=== PATIENT | male | born 1965 | race Two or more races ===

== ENCOUNTER 2016-08-17 23:03 | Emergency (ER) | payer SELFPAY ==
[2016-08-18] MEDS ORDERED: LIDOCAINE 1% INJ-PF (10 MG/ML) 30 ML SDV INJ ONE (01:14)
[2016-08-18] MEDS ORDERED: CEFTRIAXONE INJ 1000 MG VIAL IM ONE (01:14)
[2016-08-18] MEDS ORDERED: GUAIFENESIN/D-METHORPHAN (200-20 MG) SYRUP 10 ML PO ONE (01:14)
[2016-08-18] MEDS ORDERED: SULFAMETHOXAZOLE/TRIMETHOPRIM 800-160 MG TABLET PO ONE (01:19)
--- NOTE | 2016-08-18 01:25 | ER Document Report ---
ED Respiratory Problem - General Chief Complaint: Painful Cough Stated Complaint: CHEST PAIN,COUGH Mode of Arrival: Ambulatory Information source: Patient Notes: Patient is a 51-year-old male who presents to the ER today for cough 1 week with fever, chills, runny nose, wheezing and occasional shortness of breath. Patient states that he is having some pain in his chest that is worsened by the cough. He denies any history of asthma or COPD, CHF. He denies any cardiac history except for hypertension. TRAVEL OUTSIDE OF THE [place] IN LAST 30 DAYS: No Past Medical History - General Information source: Patient - Social History Smoking Status: Unknown if Ever Smoked Frequency of alcohol use: None Drug Abuse: None Family History: Reviewed & Not Pertinent Patient has suicidal ideation: No Patient has homicidal ideation: No Review of Systems - Review of Systems Constitutional: See HPI EENT: See HPI Cardiovascular: No symptoms reported Respiratory: See HPI Gastrointestinal: No symptoms reported Genitourinary: No symptoms reported Male Genitourinary: No symptoms reported Musculoskeletal: See HPI Skin: No symptoms reported Hematologic/Lymphatic: No symptoms reported Neurological/Psychological: No symptoms reported Physical Exam - Vital signs Vitals: Temp Pulse Resp BP Pulse Ox 98.4 F 62 16 188/96 H 99 08/18/16 01:47 08/18/16 01:47 08/18/16 01:47 08/18/16 01:47 08/18/16 01:47 - Notes Notes: PHYSICAL EXAMINATION: GENERAL: Wearing mask, coughing constantly, but in no acute distress. HEAD: Atraumatic, normocephalic. EYES: Pupils equal round and reactive to light, extraocular movements intact, sclera anicteric, conjunctiva are normal. NECK: Normal range of motion, supple without lymphadenopathy LUNGS: Cough, rhonchi heard in left lower lung alvarado, mild expiratory wheezes throughout, no rales HEART/CHEST: tender to palpation over bilateral lower ribs, Regular rate and rhythm without murmurs ABDOMEN: Soft, no tenderness. No guarding, no rebound EXTREMITIES: Normal range of motion, no pitting edema. No cyanosis. NEUROLOGICAL: Cranial nerves grossly intact. Normal sensory/motor exams. PSYCH: Normal mood, normal affect. SKIN: Warm, Dry, normal turgor, no rashes or lesions noted Course - Re-evaluation Re-evalutation: 08/18/16 01:22 EKG revealed normal sinus rhythm at a rate of 65 bpm. Patient's chest pain is reproducible and with coughing. Patient states he does not have money to fill antibiotic or cough medication so I had to choose from something off of the $4 [facility] list or he would not be able to fill the antibiotic anyway. For this reason I went with Bactrim as this is the only thing on the $4 [facility] list that may treat her pneumonia. I also gave him a Rocephin shot while here in the ER. - Vital Signs Vital signs: Temp Pulse Resp BP Pulse Ox 98.4 F 62 16 188/96 H 99 08/18/16 01:47 08/18/16 01:47 08/18/16 01:47 08/18/16 01:47 08/18/16 01:47 Discharge - Discharge Clinical Impression: Pneumonia Qualifiers: Pneumonia type: due to unspecified organism Laterality: right Lung location: lower lobe of lung Qualified Code(s): J18.1 - Lobar pneumonia, unspecified organism Disposition: HOME, SELF-CARE Instructions: Pneumonia ([facility]) Additional Instructions: It is incredibly important that you get your antibiotic filled. You'll be able to get it filled at [facility] $4. Return immediately for any new or worsening symptoms. Follow up with primary care provider, call tomorrow to make followup appointment. Prescriptions: Benzonatate [Tessalon Perle 100 mg Capsule] 100 mg PO Q8HP PRN #14 cap PRN Reason: Sulfamethoxazole/Trimethoprim [Bactrim Ds Tablet] 1 each PO BID #20 tablet Forms: Return to Work, Elevated Blood Pressure
[2016-08-18 02:15] VITALS: BP 188/96
--- NOTE | 2016-08-18 15:49 | EKG REPORT ---
SEVERITY:- NORMAL ECG - SINUS RHYTHM : Confirmed by: Rashmi Ramires 18-Aug-2016 15:48:14
== END 2016-08-18 01:47 | disposition home or self-care (01) ==
LOC: ER 23:03
DX: J18.1 Lobar pneumonia, unspecified organism (principal); R05 Cough; R50.9 Fever, unspecified; R06.02 Shortness of breath; R06.2 Wheezing; R07.89 Other chest pain; I10 Essential (primary) hypertension
CPT/HCPCS: 93005; 99283; 96372; 93010; J3490 ×2; J0696

== ENCOUNTER 2016-10-22 15:53 | Emergency (ER) | payer SELFPAY ==
--- NOTE | 2016-10-22 16:50 | ER Document Report ---
ED Medical Screen (RME) - General Stated Complaint: HEADACHE Time seen by provider: 16:47 Mode of Arrival: Ambulatory Information source: Patient Notes: 51-year-old male presents to ED ED for elevated blood pressure with dizziness, bad headache, and blurred vision. He states he feels sick metal when he does or doesn't eat eats. He states he ran out of money and has not been to the doctor recently does not have any medication for his high blood pressure diabetes type II or hypothyroidism. States he called [facility] and they are not taken any new patients until December. He states he went to the [facility] and there was nobody there to see him. I have greeted and performed a rapid initial assessment of this patient. A comprehensive ED assessment and evaluation of the patient, analysis of test results and completion of medical decision making process will be conducted by an additional ED providers. TRAVEL OUTSIDE OF THE [place] IN LAST 30 DAYS: No Physical Exam - Vital signs Vitals: Temp Pulse Resp BP Pulse Ox 98.2 F 64 18 170/93 H 95 10/22/16 15:57 10/22/16 15:57 10/22/16 15:57 10/22/16 15:57 10/22/16 15:57 Course - Vital Signs Vital signs: Temp Pulse Resp BP Pulse Ox 98.2 F 64 18 170/93 H 95 10/22/16 15:57 10/22/16 15:57 10/22/16 15:57 10/22/16 15:57 10/22/16 15:57
[2016-10-22 17:22] LABS: ABSOLUTE EOSINOPHILS # (AUTO) 0.2 10^3/uL (0.0-0.6); ABSOLUTE LYMPHOCYTES (AUTO) 2.4 10^3/uL (0.5-4.7); ABSOLUTE MONOCYTES (AUTO) 0.6 10^3/uL (0.1-1.4); ABSOLUTE NEUT (AUTO) 4.7 10^3/uL (1.7-8.2); BASOPHILS % (AUTO) 0.3 % (0-2); HEMATOCRIT 42.6 % (37.9-51.0); HEMOGLOBIN 14.9 g/dL (13.5-17.0); HGB HCT DIFFERENCE 2.1; LYMPHOCYTES % (AUTO) 30.4 % (13-45); MEAN CORPUSCULAR HEMOGLOBIN 29.3 pg (27.0-33.4); MEAN CORPUSCULAR HGB CONC 34.9 g/dL (32.0-36.0); MEAN CORPUSCULAR VOLUME 84 fl (80-97); MONOCYTES % (AUTO) 7.9 % (3-13); RED BLOOD COUNT 5.07 10^6/uL (4.35-5.55); RED CELL DISTRIBUTION WIDTH 13.7 % (11.5-14.0); SEGMENTED NEUTROPHILS % (AUTO) 59.4 % (42-78); WHITE BLOOD COUNT 7.8 10^3/uL (4.0-10.5)
[2016-10-22 17:33] LABS: ALANINE AMINOTRANSFERASE 71 U/L (21-72); ALBUMIN 4.1 g/dL (3.5-5.0); ALKALINE PHOSPHATASE 57 U/L (38-126); ANION GAP 8 (5-19); ASPARTATE AMINO TRANSFERASE 54 U/L (17-59); BILIRUBIN,TOTAL 0.8 mg/dL (0.2-1.3); BLOOD UREA NITROGEN 7 mg/dL (7-20); CALCIUM 9.1 mg/dL (8.4-10.2); CARBON DIOXIDE 31 mmol/L (22-30); CHLORIDE 99 mmol/L (98-107); CREATININE RESULT 0.74 mg/dL (0.52-1.25); GLUCOSE 212 mg/dL (75-110); LIPASE 132.3 U/L (23-300); POTASSIUM 3.7 mmol/L (3.6-5.0); SODIUM 138.3 mmol/L (137-145); TOTAL PROTEIN 7.2 g/dL (6.3-8.2)
[2016-10-22] MEDS ORDERED: LISINOPRIL 10 MG TABLET PO ONE (20:15)
[2016-10-22] MEDS ORDERED: METFORMIN HCL 500 MG TABLET PO ONE (20:15)
--- NOTE | 2016-10-22 20:19 | ER Document Report ---
ED General - General Chief Complaint: Blood Pressure Problem Stated Complaint: HEADACHE Time seen by provider: 20:16 Mode of Arrival: Ambulatory Information source: Patient TRAVEL OUTSIDE OF THE [place] IN LAST 30 DAYS: No - HPI Patient complains to provider of: dizziness, headache, high blood pressure Onset: This morning Onset/Duration: Gradual Quality of pain: Achy Severity: Mild Pain Level: 2 Associated symptoms: Headache Exacerbated by: Denies Relieved by: Denies Similar symptoms previously: Yes Recently seen / treated by doctor: No Notes: Patient is a 51-year-old male with a reported history of hypertension, diabetes and hypothyroidism, states he's been off his medication for the past few years because he has not had the finances to follow-up with a physician or afford his medications, he presents today complaining of dizziness, lightheadedness and a reported blood pressure 198/117 that was measured while he was attempting to donate plasma at the blood plasma center today, he reports a headache behind his eyes and in his temples, although he took 2 Aleve prior coming to the emergency room and reports his symptoms are relieved at time of my initial evaluation - Related Data Allergies/Adverse Reactions: No Known Allergies Allergy (Unverified 10/22/16 16:58) Past Medical History - General Information source: Patient - Social History Smoking Status: Former Smoker Chew tobacco use (# tins/day): No Frequency of alcohol use: None Drug Abuse: None Family History: Reviewed & Not Pertinent Patient has suicidal ideation: No Patient has homicidal ideation: No Renal/ Medical History: Denies: Hx Peritoneal Dialysis Review of Systems - Review of Systems Constitutional: No symptoms reported EENT: No symptoms reported Cardiovascular: Lightheaded Respiratory: No symptoms reported Gastrointestinal: No symptoms reported Genitourinary: No symptoms reported Male Genitourinary: No symptoms reported Musculoskeletal: No symptoms reported Skin: No symptoms reported Hematologic/Lymphatic: No symptoms reported Neurological/Psychological: See HPI -: Yes All other systems reviewed and negative Physical Exam - Vital signs Vitals: Temp Pulse Resp BP Pulse Ox 98.2 F 64 18 170/93 H 95 10/22/16 15:57 10/22/16 15:57 10/22/16 15:57 10/22/16 15:57 10/22/16 15:57 Interpretation: Hypertensive - General General appearance: Appears well, Alert - HEENT Head: Normocephalic, Atraumatic Eyes: Normal Pupils: PERRL - Respiratory Respiratory status: No respiratory distress Chest status: Nontender Breath sounds: Normal Chest palpation: Normal - Cardiovascular Rhythm: Regular Heart sounds: Normal auscultation Murmur: No - Abdominal Inspection: Obese Distension: No distension Bowel sounds: Normal Tenderness: Nontender Organomegaly: No organomegaly - Back Back: Normal, Nontender - Extremities General upper extremity: Normal inspection, Nontender, Normal color, Normal ROM , Normal temperature General lower extremity: Normal inspection, Nontender, Normal color, Normal ROM , Normal temperature, Normal weight bearing. No: Radha's sign - Neurological Neuro grossly intact: Yes Cognition: Normal Orientation: AAOx4 Roni Coma Scale Eye Opening: Spontaneous Roni Coma Scale Verbal: Oriented Roni Coma Scale Motor: Obeys Commands Roni Coma Scale Total: 15 Speech: Normal Motor strength normal: LUE, RUE, LLE, RLE Sensory: Normal - Psychological Associated symptoms: Normal affect, Normal mood - Skin Skin Temperature: Warm Skin Moisture: Dry Skin Color: Normal Course - Re-evaluation Re-evalutation: 10/23/16 04:04 Patient's lab findings were discussed with him at bedside, he does not recall medications he is supposed to be taking for his conditions, he has not followed up, admits that when he was prescribed medications he was noncompliant with them because he would simply forget to take them, states even when he had them in a daily medication dispenser, he would forget to take them and then he basically just stopped taking them altogether, and never followed back up with a primary care provider, patient is noted to be hypertensive and hyperglycemic, therefore he was started on lisinopril and metformin, and provided with information for follow-up, advised to return if symptoms worsen, patient acknowledges understanding and agreement with this plan - Vital Signs Vital signs: Temp Pulse Resp BP Pulse Ox 98.2 F 58 L 18 158/97 H 97 10/22/16 15:57 10/22/16 20:41 10/22/16 20:41 10/22/16 20:41 10/22/16 20:41 - Laboratory Result Diagrams: 10/22/16 16:55 10/22/16 16:55 Laboratory results interpreted by me: 10/22/16 10/22/16 10/22/16 16:55 16:55 17:03 Plt Count 142 L Carbon Dioxide 31 H Glucose 212 H POC Glucose 213 H Discharge - Discharge Clinical Impression: Hypertension Qualifiers: Hypertension type: essential hypertension Qualified Code(s): I10 - Essential ( primary) hypertension Diabetes Qualifiers: Diabetes mellitus type: type 2 Diabetes mellitus complication status: without complication Diabetes mellitus care home insulin use: without care home use Qualified Code(s): E11.9 - Type 2 diabetes mellitus without complications Condition: Stable Disposition: HOME, SELF-CARE Instructions: Diabetes ([facility]), Control of Diabetes During Illness ([facility]), High Blood Pressure ([facility]), High Blood Pressure, Requiring Treatment ([facility]) Additional Instructions: Follow up with your primary care provider in one to 2 days. Return to the emergency room immediately if symptoms worsen or any additional concerns. Prescriptions: Lisinopril [Prinivil 10 mg Tablet] 10 mg PO DAILY #30 tablet Metformin HCl 500 mg PO BID #60 tablet
[2016-10-23 01:12] VITALS: BP 158/97
== END 2016-10-22 20:41 | disposition home or self-care (01) ==
LOC: ER 15:53
DX: I10 Essential (primary) hypertension (principal); E11.65 Type 2 diabetes mellitus with hyperglycemia; R51 Headache; R42 Dizziness and giddiness; Z91.14 Patient's other noncompliance with medication regimen; Z59.9 Problem related to housing and economic circumstances, unspecified; Z87.891 Personal history of nicotine dependence
CPT/HCPCS: 36415; 80053; 82962; 83690; 84443; 85025; 99283

== ENCOUNTER 2016-12-12 19:33 | Emergency (ER) | payer SELFPAY ==
[2016-12-12 20:15] VITALS: BP 126/67
--- NOTE | 2016-12-12 20:51 | ER Document Report ---
ED Medical Screen (RME) - General Chief Complaint: Rectal Bleeding Stated Complaint: RECTAL BLEEDING Mode of Arrival: Ambulatory Information source: Patient TRAVEL OUTSIDE OF THE [place] IN LAST 30 DAYS: No - HPI Onset: Last week Onset/Duration: Sudden Quality of pain: Dull Severity: Mild Associated Symptoms: None Exacerbated by: Denies Relieved by: Denies Similar symptoms previously: No Recently seen / treated by doctor: No - Related Data Smoking: Non-smoker Frequency of alcohol use: None Drug Abuse: None Allergies/Adverse Reactions: No Known Allergies Allergy (Verified 12/12/16 20:37) Past Medical History - General Information source: Patient - Social History Cigarette use (# per day): No Chew tobacco use (# tins/day): No Frequency of alcohol use: None Drug Abuse: None Lives with: Alone Family history: Reviewed & Not Pertinent - Past Medical History Cardiac Medical History: Reports: Hx Hypertension Endocrine Medical History: Reports: Hx Diabetes Mellitus Type 2, Hx Hypothyroidism Renal/ Medical History: Denies: Hx Peritoneal Dialysis GI Medical History: Denies: Hx Cirrhosis, Hx Hepatitis Review of Systems - Review of Systems Constitutional: No symptoms reported EENT: No symptoms reported Cardiovascular: No symptoms reported Respiratory: No symptoms reported Gastrointestinal: See HPI Physical Exam - Vital signs Vitals: Temp Pulse Resp BP Pulse Ox 98.9 F 67 15 126/67 H 97 12/12/16 20:12 12/12/16 20:12 12/12/16 20:12 12/12/16 20:12 12/12/16 20:12 Interpretation: Normal - General General appearance: Appears well, Alert In distress: None - HEENT Head: Normocephalic Eyes: Normal Conjunctiva: Normal - Respiratory Respiratory status: No respiratory distress - Cardiovascular Rhythm: Regular - Abdominal Inspection: Morbidly Obese - Rectal Tenderness: Yes - SLIGHT Hemorrhoids: External - 1.2 cm DIAMETER LEFT, WITH SMALL PERFORATION MEDIALLY - Extremities General upper extremity: Normal inspection General lower extremity: Normal inspection - Neurological Neuro grossly intact: Yes Cognition: Normal Orientation: AAOx4 - Psychological Associated symptoms: Normal affect, Normal mood - Skin Skin Temperature: Warm Skin Moisture: Dry Skin Color: Normal Skin Turgor: Elastic Course - Vital Signs Vital signs: Temp Pulse Resp BP Pulse Ox 98.9 F 67 15 126/67 H 97 12/12/16 20:12 12/12/16 20:12 12/12/16 20:12 12/12/16 20:12 12/12/16 20:12 Doctor's Discharge - Discharge Clinical Impression: Thrombosed external hemorrhoid Condition: Stable Disposition: HOME, SELF-CARE Instructions: Hemorrhoids ([facility]), HC Hemorrhoid Cream ([facility]) Prescriptions: Hydrocortisone Acetate [Anusol Hc 25 mg Supp.rect] 1 supp.rect OR BID #14 supp.rect
== END 2016-12-12 21:11 | disposition home or self-care (01) ==
LOC: ER 19:33
DX: K64.5 Perianal venous thrombosis (principal); K62.5 Hemorrhage of anus and rectum; E66.01 Morbid (severe) obesity due to excess calories; I10 Essential (primary) hypertension; E11.9 Type 2 diabetes mellitus without complications; E03.9 Hypothyroidism, unspecified
CPT/HCPCS: 99282

== ENCOUNTER 2018-05-27 07:35 | Emergency (ER) | payer SELFPAY ==
[2018-05-27] MEDS ORDERED: NORMAL SALINE 1000 ML 1,000 ML IV ONE (08:09)
--- NOTE | 2018-05-27 08:11 | ER Document Report ---
ED General - General Chief Complaint: Nausea Stated Complaint: BODY ACHES Time Seen by Provider: 05/27/18 07:48 Mode of Arrival: Ambulatory Information source: Patient Notes: Patient presents complaining of chills, nausea, and anxiety symptoms. Patient states that he does have a history of high blood pressure, diabetes, hypothyroidism as well as anxiety. Patient states he has been out of his thyroid medicine blood pressure medicine and diabetic medicine for almost a year. Patient denies any recent travel bedrest or road trips. Patient denies any history of DVT or PE in the past. Patient states that he has had anxiety in the past and he has felt emotional and sometimes cries. Patient denies any suicidal or homicidal ideation TRAVEL OUTSIDE OF THE [place] IN LAST 30 DAYS: No - HPI Onset: This morning Onset/Duration: Gradual Quality of pain: Achy Pain Level: 1 Associated symptoms: Nausea. denies: Chest pain, Nonproductive cough, Productive cough, Fever, Headache, Vomiting, Shortness of breath Exacerbated by: Denies Relieved by: Denies Similar symptoms previously: Yes Recently seen / treated by doctor: No - Related Data Allergies/Adverse Reactions: No Known Allergies Allergy (Verified 05/27/18 07:36) Past Medical History - General Information source: Patient - Social History Smoking Status: Never Smoker Frequency of alcohol use: None Drug Abuse: None Occupation: None Lives with: Alone Family History: Reviewed & Not Pertinent - Past Medical History Cardiac Medical History: Reports: Hx Hypertension Endocrine Medical History: Reports: Hx Diabetes Mellitus Type 2, Hx Hypothyroidism Renal/ Medical History: Denies: Hx Peritoneal Dialysis GI Medical History: Denies: Hx Cirrhosis, Hx Hepatitis Psychiatric Medical History: Reports: Hx Anxiety Infectious Medical History: Denies: Hx Hepatitis Surgical Hx: Negative Review of Systems - Review of Systems Constitutional: No symptoms reported. denies: Fever, Recent illness EENT: No symptoms reported Cardiovascular: Dizziness. denies: Chest pain Respiratory: No symptoms reported. denies: Cough, Short of breath Gastrointestinal: Nausea, Other - Dry mouth. denies: Abdominal pain, Vomiting Genitourinary: No symptoms reported. denies: Dysuria Male Genitourinary: No symptoms reported Musculoskeletal: No symptoms reported. denies: Back pain Skin: No symptoms reported Hematologic/Lymphatic: No symptoms reported Neurological/Psychological: Anxiety. denies: Headaches Physical Exam - Vital signs Vitals: Temp Pulse Resp BP Pulse Ox 98.1 F 58 L 18 165/94 H 96 05/27/18 07:40 05/27/18 07:40 05/27/18 07:40 05/27/18 07:40 05/27/18 07:40 - General General appearance: Appears well, Alert In distress: None - HEENT Head: Normocephalic, Atraumatic Eyes: Normal Conjunctiva: Normal Nasal: Normal Mouth/Lips: Normal Mucous membranes: Dry Pharynx: Normal Neck: Normal, Supple. No: Lymphadenopathy - Respiratory Respiratory status: No respiratory distress Chest status: Nontender Breath sounds: Normal. No: Rales, Rhonchi, Stridor, Wheezing Chest palpation: Normal - Cardiovascular Rhythm: Regular Heart sounds: S1 appreciated, S2 appreciated Murmur: No - Abdominal Inspection: Morbidly Obese Distension: No distension Bowel sounds: Normal Tenderness: Nontender - Back Back: Normal, Nontender. No: CVA tenderness - Extremities General upper extremity: Normal inspection, Normal ROM General lower extremity: Normal inspection, Normal ROM - Neurological Neuro grossly intact: Yes Cognition: Normal Roni Coma Scale Eye Opening: Spontaneous [place] Coma Scale Verbal: Oriented Roni Coma Scale Motor: Obeys Commands [place] Coma Scale Total: 15 - Psychological Associated symptoms: Anxious - mild - Skin Skin Temperature: Warm Skin Moisture: Dry Skin Color: Normal Course - Re-evaluation Re-evalutation: 05/27/18 12:00 Patient resting comfortably, patient updated regarding plan of care. Patient continues without any dyspnea or chest pain. Patient advised of elevated TSH level in addition to the elevated blood sugar. No concern for DKA at this time. Patient awaiting a repeat troponin testing at this time. 05/27/18 14:[address] Melina Keller regarding patient presentation, reviewed diagnostic evaluation. Dr. Keller does not recommend starting patient on levothyroxine at this time as it will need to be adjusted by primary care provider. Reviewed patient's repeat EKG, patient with nonspecific T wave abnormalities. Patient with troponin cycled x2 both of which are negative. Patient continues without any dyspnea or chest pain symptoms. Patient encouraged to be compliant with both his antihypertensive as well as diabetic medications. Patient given a short course of prescription of Vistaril to manage his anxiety symptoms. Patient was seen by the mental health team and was deemed safe for discharge and outpatient follow-up. Discussed worsening symptoms that patient should return for. Patient verbalized understanding and agrees with this plan of care. - Vital Signs Vital signs: Temp Pulse Resp BP Pulse Ox 97.3 F 54 L 19 162/91 H 98 05/27/18 15:16 05/27/18 15:16 05/27/18 15:16 05/27/18 15:16 05/27/18 15:16 - Laboratory Result Diagrams: 05/27/18 09:00 05/27/18 09:00 Laboratory results interpreted by me: 05/27/18 05/27/18 05/27/18 09:00 09:00 09:00 Carbon Dioxide 31 H Glucose 152 H Hemoglobin A1c % 7.7 H TSH 7.81 H Labs- Entire Visit 05/27/18 05/27/18 05/27/18 09:00 09:00 09:00 WBC 6.9 RBC 5.34 Hgb 15.8 Hct 45.2 MCV 85 MCH 29.5 MCHC 34.9 RDW 13.9 Plt Count 165 Seg Neutrophils % 63.8 Lymphocytes % 25.5 Monocytes % 9.0 Eosinophils % 1.4 Basophils % 0.3 Absolute Neutrophils 4.4 Absolute Lymphocytes 1.8 Absolute Monocytes 0.6 Absolute Eosinophils 0.1 Absolute Basophils 0.0 Sodium 138.3 Potassium 4.0 Chloride 101 Carbon Dioxide 31 H Anion Gap 6 BUN 11 Creatinine 0.82 Est GFR ( Amer) > 60 Est GFR (Non-Af Amer) > 60 Glucose 152 H Hemoglobin A1c % Calcium 8.9 Magnesium 2.0 Total Bilirubin 0.6 Direct Bilirubin 0.2 Neonat Total Bilirubin Not Reportable Neonat Direct Bilirubin Not Reportable Neonat Indirect Bili Not Reportable AST 44 ALT 60 Alkaline Phosphatase 62 Creatine Kinase 68 CK-MB (CK-2) Troponin I Total Protein 7.3 Albumin 4.0 TSH 7.81 H Free T4 1.02 Free T3 pg/mL 3.14 Urine Color Urine Appearance Urine pH Ur Specific Bailey Urine Protein Urine Glucose (UA) Urine Ketones Urine Blood Urine Nitrite Urine Bilirubin Urine Urobilinogen Ur Leukocyte Esterase Urine WBC (Auto) Urine RBC (Auto) Squamous Epi Cells Auto Urine Mucus (Auto) Urine Ascorbic Acid Urine Opiates Screen Urine Methadone Screen Ur Barbiturates Screen Ur Phencyclidine Scrn Ur Amphetamines Screen U Benzodiazepines Scrn Urine Cocaine Screen U Marijuana (THC) Screen 05/27/18 05/27/18 05/27/18 09:00 09:00 10:00 WBC RBC Hgb Hct MCV MCH MCHC RDW Plt Count Seg Neutrophils % Lymphocytes % Monocytes % Eosinophils % Basophils % Absolute Neutrophils Absolute Lymphocytes Absolute Monocytes Absolute Eosinophils Absolute Basophils Sodium Potassium Chloride Carbon Dioxide Anion Gap BUN Creatinine Est GFR ( Amer) Est GFR (Non-Af Amer) Glucose Hemoglobin A1c % 7.7 H Calcium Magnesium Total Bilirubin Direct Bilirubin Neonat Total Bilirubin Neonat Direct Bilirubin Neonat Indirect Bili AST ALT Alkaline Phosphatase Creatine Kinase CK-MB (CK-2) 0.75 Troponin I < 0.012 Total Protein Albumin TSH Free T4 Free T3 pg/mL Urine Color STRAW Urine Appearance CLEAR Urine pH 7.0 Ur Specific Bailey 1.010 Urine Protein NEGATIVE Urine Glucose (UA) NEGATIVE Urine Ketones NEGATIVE Urine Blood NEGATIVE Urine Nitrite NEGATIVE Urine Bilirubin NEGATIVE Urine Urobilinogen NEGATIVE Ur Leukocyte Esterase NEGATIVE Urine WBC (Auto) 0 Urine RBC (Auto) 0 Squamous Epi Cells Auto 1 Urine Mucus (Auto) RARE Urine Ascorbic Acid NEGATIVE Urine Opiates Screen Urine Methadone Screen Ur Barbiturates Screen Ur Phencyclidine Scrn Ur Amphetamines Screen U Benzodiazepines Scrn Urine Cocaine Screen U Marijuana (THC) Screen 05/27/18 05/27/18 10:00 12:50 WBC RBC Hgb Hct MCV MCH MCHC RDW Plt Count Seg Neutrophils % Lymphocytes % Monocytes % Eosinophils % Basophils % Absolute Neutrophils Absolute Lymphocytes Absolute Monocytes Absolute Eosinophils Absolute Basophils Sodium Potassium Chloride Carbon Dioxide Anion Gap BUN Creatinine Est GFR ( Amer) Est GFR (Non-Af Amer) Glucose Hemoglobin A1c % Calcium Magnesium Total Bilirubin Direct Bilirubin Neonat Total Bilirubin Neonat Direct Bilirubin Neonat Indirect Bili AST ALT Alkaline Phosphatase Creatine Kinase CK-MB (CK-2) Troponin I < 0.012 Total Protein Albumin TSH Free T4 Free T3 pg/mL Urine Color Urine Appearance Urine pH Ur Specific Bailey Urine Protein Urine Glucose (UA) Urine Ketones Urine Blood Urine Nitrite Urine Bilirubin Urine Urobilinogen Ur Leukocyte Esterase Urine WBC (Auto) Urine RBC (Auto) Squamous Epi Cells Auto Urine Mucus (Auto) Urine Ascorbic Acid Urine Opiates Screen NEGATIVE Urine Methadone Screen NEGATIVE Ur Barbiturates Screen NEGATIVE Ur Phencyclidine Scrn NEGATIVE Ur Amphetamines Screen NEGATIVE U Benzodiazepines Scrn NEGATIVE Urine Cocaine Screen NEGATIVE U Marijuana (THC) Screen NEGATIVE - Diagnostic Test Radiology reviewed: Reports reviewed Discharge - Discharge Clinical Impression: Anxiety, Noncompliance Diabetes Qualifiers: Diabetes mellitus type: type 2 Diabetes mellitus long-term insulin use: without application security consultant use Diabetes mellitus complication status: with hyperglycemia Qualified Code(s): E11.65 - Type 2 diabetes mellitus with hyperglycemia Hypertension Qualifiers: Hypertension type: unspecified Qualified Code(s): I10 - Essential (primary) hypertension Condition: Stable Disposition: HOME, SELF-CARE Instructions: Anxiety ([facility]), Diabetes ([facility]), Glucophage ([facility]), High Blood Pressure ([facility]) Additional Instructions: Return immediately for any new or worsening symptoms Followup with your primary care provider, call tomorrow to make a followup appointment Follow-up with a primary doctor to recheck your thyroid studies. May need to resume taking levothyroxine but a primary doctor will have to start this medication for you. Prescriptions: Hydroxyzine HCl [Atarax 25 mg Tablet] 2 tab PO TID PRN #20 tablet PRN Reason: Lisinopril 10 mg PO DAILY #30 tablet Metformin HCl [Glucophage 500 mg Tablet] 500 mg PO BID #60 tablet Referrals: [facility] [Provider Group] - 05/29/18
--- NOTE | 2018-05-27 09:00 | RADIOLOGY REPORT (SQ) ---
EXAM DESCRIPTION: CHEST 2 VIEWS COMPLETED DATE/TIME: 05/27/2018 8:38 am REASON FOR STUDY: anxiety, ekg changes COMPARISON: None. EXAM PARAMETERS: NUMBER OF VIEWS: two views TECHNIQUE: Digital Frontal and Lateral radiographic views of the chest acquired. RADIATION DOSE: NA LIMITATIONS: none FINDINGS: LUNGS AND PLEURA: No opacities, masses or pneumothorax. No pleural effusion. MEDIASTINUM AND HILAR STRUCTURES: No masses or contour abnormalities. HEART AND VASCULAR STRUCTURES: Heart normal size. No evidence for failure. BONES: No acute findings. HARDWARE: None in the chest. OTHER: No other significant finding. IMPRESSION: NO ACUTE RADIOGRAPHIC FINDING IN THE CHEST. TECHNICAL DOCUMENTATION: JOB ID: [id number] [employer]- All Rights Reserved Reading location - IP/workstation name: [email or web address]
[2018-05-27 09:24] LABS: RED BLOOD COUNT 5.34 10^6/uL (4.35-5.55); WHITE BLOOD COUNT 6.9 10^3/uL (4.0-10.5)
[2018-05-27 09:25] LABS: ABSOLUTE EOSINOPHILS # (AUTO) 0.1 10^3/uL (0.0-0.6); ABSOLUTE LYMPHOCYTES (AUTO) 1.8 10^3/uL (0.5-4.7); ABSOLUTE MONOCYTES (AUTO) 0.6 10^3/uL (0.1-1.4); ABSOLUTE NEUT (AUTO) 4.4 10^3/uL (1.7-8.2); BASOPHILS % (AUTO) 0.3 % (0-2); EOSINOPHILS % (AUTO) 1.4 % (0-6); HEMATOCRIT 45.2 % (37.9-51.0); HEMOGLOBIN 15.8 g/dL (13.5-17.0); LYMPHOCYTES % (AUTO) 25.5 % (13-45); MEAN CORPUSCULAR HEMOGLOBIN 29.5 pg (27.0-33.4); MEAN CORPUSCULAR HGB CONC 34.9 g/dL (32.0-36.0); MEAN CORPUSCULAR VOLUME 85 fl (80-97); PLATELET COUNT 165 10^3/uL (150-450); RED CELL DISTRIBUTION WIDTH 13.9 % (11.5-14.0); SEGMENTED NEUTROPHILS % (AUTO) 63.8 % (42-78); TOTAL CELLS COUNTED % (AUTO) 100 %
--- NOTE | 2018-05-27 09:35 | EKG REPORT ---
SEVERITY:- ABNORMAL ECG - SINUS RHYTHM BORDERLINE LEFT AXIS DEVIATION NONSPECIFIC T ABNORMALITIES, DIFFUSE LEADS : Confirmed by: Marie Lowery MD 27-May-2018 09:33:51
[2018-05-27 09:48] LABS: ALANINE AMINOTRANSFERASE 60 U/L (21-72); ALKALINE PHOSPHATASE 62 U/L (38-126); ANION GAP 6 (5-19); ASPARTATE AMINO TRANSFERASE 44 U/L (17-59); BILIRUBIN,DIRECT 0.2 mg/dL (0.0-0.4); BILIRUBIN,TOTAL 0.6 mg/dL (0.2-1.3); BLOOD UREA NITROGEN 11 mg/dL (7-20); CALCIUM 8.9 mg/dL (8.4-10.2); CARBON DIOXIDE 31 mmol/L (22-30); CHLORIDE 101 mmol/L (98-107); CREATINE KINASE 68 U/L (55-170); GLUCOSE 152 mg/dL (75-110); SODIUM 138.3 mmol/L (137-145); TOTAL PROTEIN 7.3 g/dL (6.3-8.2)
[2018-05-27 10:00] LABS: CREATINE KINASE MB 0.75 ng/mL (<4.55)
[2018-05-27 10:03] LABS: TROPONIN I < 0.012 ng/mL
[2018-05-27 10:08] LABS: FREE T3 3.14 pg/mL (2.77-5.27)
[2018-05-27 10:09] LABS: FREE T4 (FREE THYROXINE) 1.02 ng/dL (0.78-2.19)
[2018-05-27 10:19] LABS: APPEARANCE,URINE CLEAR; BILIRUBIN,URINE NEGATIVE (NEGATIVE); COLOR,URINE STRAW; GLUCOSE, URINE NEGATIVE (NEGATIVE); KETONES,URINE NEGATIVE (NEGATIVE); LEUKOCYTE ESTERASE,URINE NEGATIVE (NEGATIVE); NITRITE,URINE NEGATIVE (NEGATIVE); PROTEIN,URINE NEGATIVE (NEGATIVE); UROBILINOGEN,URINE NEGATIVE mg/dL (<2.0)
[2018-05-27 10:24] LABS: THYROID STIMULATING HORMONE 7.81 uIU/mL (0.47-4.68)
[2018-05-27 10:38] LABS: URINE AMPHETAMINES SCREEN NEGATIVE; URINE BARBITURATES SCREEN NEGATIVE; URINE BENZODIAZEPINES SCREEN NEGATIVE; URINE COCAINE SCREEN NEGATIVE; URINE MARIJUANA (THC) SCREEN NEGATIVE; URINE METHADONE SCREEN NEGATIVE; URINE PHENCYCLIDINE SCREEN NEGATIVE
[2018-05-27] MEDS ORDERED: LISINOPRIL 10 MG TABLET PO ONE (10:40)
--- NOTE | 2018-05-27 11:49 | PSYCHOLOGICAL NOTE ---
Psych Note - Psych Note Psych Note: Reason for consult: anxiety, history of PTSD per patient report, borderline personality per patient report Pt presents to the ED with reports of nausea, anxiety, chills, and dry mouth beginning this morning prior to arrival. Pt is alert and oriented with NAD noted. Pt breaths even and unlabored and lung sounds clear. Pt is afebrile. Pt denies any chest pain. Pt states he has a history of HTN, diabetes, and hypothyroidism. Pt also stated he is not on any current medications. Will continue to monitor. Patient states that he came to the Emergency Department because he was experiencing nausea and body aches, however, he did mention to the nurse that he was feeling "anxious". Patient reports that he doesn't know what his triggers are for feeling anxious but he just "feels" anxious. Patient disclosed that he sometimes forgets to take his medication but at other times he will just look at it and decide not to take it. Patient states that he knows that he should take his medicine but he just doesn't. Patient does not have an active mental health provider since he last saw [email or web address] in 2017. Patient states that he has not had the "energy" and "follow through" to return to [facility] [[email or web address] for services. Patient denies any suicidal/homicidal ideation stating that "he is a [place] and would go straight to [facility]" if he did kill himself or someone else. Patient disclosed that his priority at the moment is his medical health, as he has diabetes and a thyroid problem. Patient is alert and oriented to person, place, time and circumstance. Mood is euthymic. Patient denies wanting to kill himself and/or someone else. Eye contact was well maintained. Patient presents with an intact reality based i.e organized and linear thought process. Conversational speech was within normal rate, tone and prosody. Intellectual abilities appear to be within the average range. Attention and concentration are good. Insight, judgment and impulse control are good. No medication recommendations at this time Diagnosis 309.81 (F43.10) Posttraumatic Stress Disorder, per patient report 301.83 (F60.3) Borderline Personality, per patient report Impression/Plan: Patient is cleared from acute psychiatric services. Patient is not suicidal/homicidal with no intent, means or plans. Patient's mood is euthymic. This Clinician provided psycho education on the importance of taking his medication as prescribed to mitigate any concerns with his thyroid. Patient reports that he does not take medication as prescribed and he does not know why.This Clinician provided a resource list to include [facility] to assist him upon discharge. Patient indicated during assessment that he needs assistance with coordinating medical/mental health services. Dr. Gonzales was consulted on the care and management of this patient; attending physician is in agreement with recommendations.
[2018-05-27 15:20] VITALS: BP 162/91
--- NOTE | 2018-05-27 20:52 | EKG REPORT ---
SEVERITY:- BORDERLINE ECG - SINUS RHYTHM BORDERLINE T ABNORMALITIES, LATERAL LEADS : Confirmed by: Marie Lowery MD 27-May-2018 20:51:30
== END 2018-05-27 15:21 | disposition home or self-care (01) ==
LOC: ER 07:35
DX: E11.65 Type 2 diabetes mellitus with hyperglycemia (principal); R41.9 Unspecified symptoms and signs involving cognitive functions and awareness; I10 Essential (primary) hypertension; Z91.14 Patient's other noncompliance with medication regimen; R11.0 Nausea; M79.10 Myalgia, unspecified site; E03.9 Hypothyroidism, unspecified
CPT/HCPCS: 93005; 99284; 96360; 36415; 84439; 82553; 82550; 83735; 84443; 85025; 80053; 81001; 84484; 80307; 84481; 83036; 71046; 93010; J7030